=== PATIENT | male | born 1960 | race Caucasian/White ===

== ENCOUNTER → 2018-04-07 | Outpatient (CLI) | payer SELFPAY ==
[2018-04-07 12:37] LABS: Basophils # (A) 0.1 k/uL (0-0.2); Basophils % (A) 1 %; Eosinophils # (A) 0.1 k/uL (0-0.7); Eosinophils % (A) 1 %; HCT 49.1 % (39.0-53.0); HGB 16.3 gm/dL (13.0-17.5); Lymphocytes % (A) 33 %; MCHC 33.1 g/dL (31.0-37.0); MCV 90.7 fL (80.0-100.0); Mean Platelet Volume 7.3; Monocytes # (A) 0.4 k/uL (0-1.0); Monocytes % (A) 7 %; Neutrophils # (A) 3.4 k/uL (1.3-7.7); Neutrophils % (A) 56 %; Platelet Count 191 k/uL (150-450); RBC 5.41 m/uL (4.30-5.90); RDW 12.4 % (11.5-15.5); WBC 6.1 k/uL (3.8-10.6)
[2018-04-07 13:07] LABS: ALT 77 U/L (21-72); AST 69 U/L (17-59); Albumin 4.4 g/dL (3.5-5.0); Alkaline Phosphatase 70 U/L (38-126); Anion Gap 9 mmol/L; Blood Urea Nitrogen 20 mg/dL (9-20); Calcium 9.4 mg/dL (8.4-10.2); Carbon Dioxide 29 mmol/L (22-30); Chloride 101 mmol/L (98-107); Cholesterol 207 mg/dL (<200); Glucose 103 mg/dL (74-99); HDL Cholesterol 54 mg/dL (40-60); LDL Cholesterol,Calculated 143 mg/dL (0-99); Potassium 4.7 mmol/L (3.5-5.1); Sodium 139 mmol/L (137-145); Total Bilirubin 0.8 mg/dL (0.2-1.3); Total Protein 7.7 g/dL (6.3-8.2); Triglycerides 49 mg/dL (<150)
[2018-04-07 13:22] LABS: Prostate Specific Antigen 1.14 ng/mL (0.00-4.00)
[2018-04-07 19:43] LABS: Hemoglobin A1C 5.5 % (4.0-6.0)
== END | disposition home or self-care (01) ==
LOC: LABWHC1 12:08
PROVIDERS: ATTEND Family Medicine
DX: I10 Essential (primary) hypertension (principal)
CPT/HCPCS: 36415; 80053; 80061; 83036; 84153; 84443; 85025

== ENCOUNTER 2018-09-24 01:50 | Emergency (ER) | payer OTHER ==
[2018-09-24 01:57] VITALS: TEMP 98.6
--- NOTE | 2018-09-24 02:47 | CT ---
ADDENDUM - Added by Sandoval Ashby MD on 09/24/2018 2:47 AM (-08:00) 45 ctdi [id number] dlp EXAM: CT Maxillofacial Without Intravenous Contrast CLINICAL HISTORY: ITS.REASON CT Reason: Pain TECHNIQUE: Axial computed tomography images of the face without intravenous contrast. This CT exam was performed using one or more of the following dose reduction techniques: automated exposure control, adjustment of the mA and/or kV according to patient size, and/or use of iterative reconstruction technique. COMPARISON: No relevant prior studies available. FINDINGS: Bones/joints: Age-indeterminate depressed left orbital floor fracture. Bilateral nasal bone fractures including a depressed fracture on the right. Soft tissues: Perinasal and periorbital soft tissue swelling. Orbits: Unremarkable. Sinuses: No air-fluid levels. IMPRESSION: Age-indeterminate depressed left orbital floor fracture. Bilateral nasal bone fractures including a depressed fracture on the right.
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
[2018-09-24] MEDS ORDERED: LIDOCAINE 1% INJ 10MG/ML (20 ML MDV) SQ ONE (02:56)
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
[2018-09-24 09:06] VITALS: BP 131/85; PULSE 75; RESP 18
== END 2018-09-24 09:06 | disposition home or self-care (01) ==
LOC: EC 01:50
DX: S02.2XXA Fracture of nasal bones, initial encounter for closed fracture (principal); S02.32XA Fracture of orbital floor, left side, initial encounter for closed fracture; S01.111A Laceration without foreign body of right eyelid and periocular area, initial encounter; F10.129 Alcohol abuse with intoxication, unspecified; Y04.0XXA Assault by unarmed brawl or fight, initial encounter; Y92.89 Other specified places as the place of occurrence of the external cause
CPT/HCPCS: 70486; 70450; 99284; 12011; J2001

== ENCOUNTER → 2018-10-27 | Outpatient (CLI) | payer SELFPAY ==
[2018-10-27 11:34] LABS: Basophils # (A) 0.1 k/uL (0-0.2); Basophils % (A) 1 %; Eosinophils # (A) 0.1 k/uL (0-0.7); Eosinophils % (A) 2 %; HGB 15.3 gm/dL (13.0-17.5); Lymphocytes # (A) 1.8 k/uL (1.0-4.8); Lymphocytes % (A) 35 %; MCH 28.7 pg (25.0-35.0); MCV 89.9 fL (80.0-100.0); Mean Platelet Volume 7.5; Monocytes # (A) 0.3 k/uL (0-1.0); Monocytes % (A) 7 %; Neutrophils # (A) 2.7 k/uL (1.3-7.7); Neutrophils % (A) 53 %; Platelet Count 165 k/uL (150-450); RBC 5.34 m/uL (4.30-5.90); RDW 12.9 % (11.5-15.5)
[2018-10-27 16:21] LABS: Albumin 4.5 g/dL (3.80-4.90); Albumin/Globulin Ratio 1.88 (1.60-3.17); Calcium 9.2 mg/dL (8.7-10.3); Globulin 2.4 g/dL (1.6-3.3); Potassium 4.4 mmol/L (3.5-5.5); Total Bilirubin 0.8 mg/dL (0.2-1.2); Total Protein 6.9 g/dL (6.2-8.2)
[2018-10-27 16:23] LABS: Folate, Serum 15.8 ng/mL
[2018-10-27 16:27] LABS: T4, Free (Free Thyroxine) 1.1 ng/dL (0.80-1.80)
[2018-10-27 20:04] LABS: Hemoglobin A1C 5.8 % (4.0-6.0)
== END | disposition home or self-care (01) ==
LOC: LABWHC1 10:34
PROVIDERS: ATTEND Family Medicine
DX: I10 Essential (primary) hypertension (principal)
CPT/HCPCS: 36415; 80053; 82306; 82607; 82746; 83036; 84439; 84443; 85025

== ENCOUNTER 2018-11-11 08:46 | Observation (INO) | payer OTHER ==
[2018-11-11] MEDS ORDERED: NITROGLYCERIN OINT 1 INCH/GM PACKET TOPICAL STA (09:00)
[2018-11-11] MEDS ORDERED: ASPIRIN 81 MG PO STA (09:00)
--- NOTE | 2018-11-11 09:02 | ED ---
General Adult HPI - General Chief complaint: Chest Pain Stated complaint: Chest pain Time Seen by Provider: 11/11/18 08:50 Source: patient, RN notes reviewed Mode of arrival: wheelchair Limitations: no limitations - History of Present Illness Initial comments: This is a 58-year-old male who presents emergency Department complaining of chest pain. Patient states it started about 4-5 days ago. He states it's intermittent in nature it seems to come in last couple hours when it comes. Patient states that the pain is associated with shortness of breath and this morning it was associated with diaphoresis. Patient states she's also noticed lately anytime he seems to observe himself he has shortness of breath which she normally does not. Patient denies any nausea only but states occasionally with chest pain he does get some nausea. Patient denies any abdominal pain. Patient states he does have high cholesterol and high blood pressure and also strong family history of heart disease. Patient denies any smoking diabetes. Patient denies any recent fever chills or cough. Patient denies headache patient denies numbness weakness. Patient denies any lightheadedness dizziness or near syncopal episode. Patient denies any swelling to the legs or calf tenderness. - Related Data Home Medications Medication Instructions Recorded Confirmed Atorvastatin [Lipitor] 20 mg PO DAILY 11/11/18 11/11/18 Cholecalciferol [Vitamin D3] 1,000 unit PO DAILY 11/11/18 11/11/18 DULoxetine HCL [Cymbalta] 60 mg PO DAILY 11/11/18 11/11/18 Hydrochlorothiazide [Hydrodiuril] 25 mg PO DAILY 11/11/18 11/11/18 Lisinopril 40 mg PO DAILY 11/11/18 11/11/18 Omeprazole 20 mg PO DAILY 11/11/18 11/11/18 Allergies Allergy/AdvReac Type Severity Reaction Status Date / Time No Known Allergies Allergy Verified 11/11/18 09:13 Review of Systems ROS Statement: Those systems with pertinent positive or pertinent negative responses have been documented in the HPI. ROS Other: All systems not noted in ROS Statement are negative. Past Medical History Past Medical History: GERD/Reflux, Hyperlipidemia, Hypertension History of Any Multi-Drug Resistant Organisms: None Reported Additional Past Surgical History / Comment(s): Hernia 40 yrs ago per patient Past Psychological History: No Psychological Hx Reported Smoking Status: Never smoker Past Alcohol Use History: Occasional Past Drug Use History: None Reported General Exam - General Exam Comments Initial Comments: GENERAL: Patient is well-developed and well-nourished. Patient is nontoxic and well- hydrated and is in mild distress. ENT: Neck is soft and supple. No significant lymphadenopathy is noted. Oropharynx is clear. Moist mucous membranes. Neck has full range of motion without eliciting any pain. EYES: The sclera were anicteric and conjunctiva were pink and moist. Extraocular movements were intact and pupils were equal round and reactive to light. Eyelids were unremarkable. PULMONARY: Unlabored respirations. Good breath sounds bilaterally. No audible rales rhonchi or wheezing was noted. CARDIOVASCULAR: There is a regular rate and rhythm without any murmurs gallops or rubs. ABDOMEN: Soft and nontender with normal bowel sounds. No palpable organomegaly was noted. There is no palpable pulsatile mass. SKIN: Skin is clear with no lesions or rashes and otherwise unremarkable. NEUROLOGIC: Patient is alert and oriented x3. Cranial nerves II through XII are grossly intact. Motor and sensory are also intact. Normal speech, volume and content. Symmetrical smile. MUSCULOSKELETAL: Normal extremities with adequate strength and full range of motion. No lower extremity swelling or edema. No calf tenderness. LYMPHATICS: No significant lymphadenopathy is noted PSYCHIATRIC: Normal psychiatric evaluation. Limitations: no limitations Course Vital Signs 11/11/18 11/11/18 11/11/18 08:47 09:17 09:22 Temperature 98.3 F Pulse Rate 70 59 L 81 Respiratory 18 18 18 Rate Blood Pressure 179/111 159/108 141/95 O2 Sat by Pulse 99 97 96 Oximetry 11/11/18 09:56 Temperature Pulse Rate 75 Respiratory 18 Rate Blood Pressure 140/78 O2 Sat by Pulse 98 Oximetry Medical Decision Making - Medical Decision Making EKG shows a normal sinus rhythm at 70 bpm UT interval 270 QRS is 84 Q-T intervals 42 QTC is 434. Patient's EKG shows no ST segment elevation or depression or T wave abnormalities are noted. Chest x-ray shows no acute abnormality. Patient received heparin Nitropaste and a nitroglycerin sublingual as well as aspirin emergency department. I spoke with the patient [place] hospitalist agreed to accept the patient admitted the patient wrote admitting orders I consult cardiology. I continued heparin Nitropaste and aspirin on the floor. - Lab Data Result diagrams: 11/11/18 09:08 11/11/18 09:08 Lab Results 11/11/18 11/11/18 11/11/18 Range/Units 09:08 09:08 09:08 WBC 5.1 (3.8-10.6) k/uL RBC 5.18 (4.30-5.90) m/uL Hgb 15.3 (13.0-17.5) gm/dL Hct 44.5 (39.0-53.0) % MCV 86.0 (80.0-100.0) fL MCH 29.6 (25.0-35.0) pg MCHC 34.4 (31.0-37.0) g/dL RDW 13.2 (11.5-15.5) % Plt Count 192 (150-450) k/uL Neutrophils % 52 % Lymphocytes % 34 % Monocytes % 8 % Eosinophils % 3 % Basophils % 1 % Neutrophils # 2.6 (1.3-7.7) k/uL Lymphocytes # 1.7 (1.0-4.8) k/uL Monocytes # 0.4 (0-1.0) k/uL Eosinophils # 0.2 (0-0.7) k/uL Basophils # 0.1 (0-0.2) k/uL PT 10.6 (9.0-12.0) sec INR 1.0 (<1.2) APTT 23.0 (22.0-30.0) sec Sodium 137 (137-145) mmol/L Potassium 4.3 (3.5-5.1) mmol/L Chloride 99 (98-107) mmol/L Carbon Dioxide 29 (22-30) mmol/L Anion Gap 9 mmol/L BUN 20 (9-20) mg/dL Creatinine 0.86 (0.66-1.25) mg/dL Est GFR (CKD-EPI)AfAm >90 (>60 ml/min/1.73 sqM) Est GFR (CKD-EPI)NonAf >90 (>60 ml/min/1.73 sqM) Glucose 114 H (74-99) mg/dL Calcium 9.9 (8.4-10.2) mg/dL Magnesium 1.7 (1.6-2.3) mg/dL Total Bilirubin 0.5 (0.2-1.3) mg/dL AST 38 (17-59) U/L ALT 55 (21-72) U/L Alkaline Phosphatase 90 (38-126) U/L Troponin I (0.000-0.034) ng/mL NT-Pro-B Natriuret Pep pg/mL Total Protein 7.6 (6.3-8.2) g/dL Albumin 4.3 (3.5-5.0) g/dL 11/11/18 11/11/18 Range/Units 09:08 09:08 WBC (3.8-10.6) k/uL RBC (4.30-5.90) m/uL Hgb (13.0-17.5) gm/dL Hct (39.0-53.0) % MCV (80.0-100.0) fL MCH (25.0-35.0) pg MCHC (31.0-37.0) g/dL RDW (11.5-15.5) % Plt Count (150-450) k/uL Neutrophils % % Lymphocytes % % Monocytes % % Eosinophils % % Basophils % % Neutrophils # (1.3-7.7) k/uL Lymphocytes # (1.0-4.8) k/uL Monocytes # (0-1.0) k/uL Eosinophils # (0-0.7) k/uL Basophils # (0-0.2) k/uL PT (9.0-12.0) sec INR (<1.2) APTT (22.0-30.0) sec Sodium (137-145) mmol/L Potassium (3.5-5.1) mmol/L Chloride (98-107) mmol/L Carbon Dioxide (22-30) mmol/L Anion Gap mmol/L BUN (9-20) mg/dL Creatinine (0.66-1.25) mg/dL Est GFR (CKD-EPI)AfAm (>60 ml/min/1.73 sqM) Est GFR (CKD-EPI)NonAf (>60 ml/min/1.73 sqM) Glucose (74-99) mg/dL Calcium (8.4-10.2) mg/dL Magnesium (1.6-2.3) mg/dL Total Bilirubin (0.2-1.3) mg/dL AST (17-59) U/L ALT (21-72) U/L Alkaline Phosphatase (38-126) U/L Troponin I <0.012 (0.000-0.034) ng/mL NT-Pro-B Natriuret Pep 16 pg/mL Total Protein (6.3-8.2) g/dL Albumin (3.5-5.0) g/dL Critical Care Time Critical Care Time: Yes Total Critical Care Time: 35 Disposition Clinical Impression: Unstable angina pectoris, Hypertensive urgency Disposition: ADMITTED IP TO THIS HOSP Referrals: None,Stated [Primary Care Provider] - 1-2 days Time of Disposition: 10:41
[2018-11-11] MEDS ORDERED: NITROGLYCERIN SL TABS 0.4 MG TAB SUBLINGUAL STA (09:04)
[2018-11-11 09:30] LABS: Basophils # (A) 0.1 k/uL (0-0.2); Basophils % (A) 1 %; Eosinophils # (A) 0.2 k/uL (0-0.7); Eosinophils % (A) 3 %; HCT 44.5 % (39.0-53.0); HGB 15.3 gm/dL (13.0-17.5); Lymphocytes # (A) 1.7 k/uL (1.0-4.8); Lymphocytes % (A) 34 %; MCH 29.6 pg (25.0-35.0); MCHC 34.4 g/dL (31.0-37.0); Mean Platelet Volume 7.8; Monocytes # (A) 0.4 k/uL (0-1.0); Monocytes % (A) 8 %; Neutrophils # (A) 2.6 k/uL (1.3-7.7); Neutrophils % (A) 52 %; Platelet Count 192 k/uL (150-450); RBC 5.18 m/uL (4.30-5.90); RDW 13.2 % (11.5-15.5); WBC 5.1 k/uL (3.8-10.6)
[2018-11-11 09:38] LABS: ALT 55 U/L (21-72); AST 38 U/L (17-59); Albumin 4.3 g/dL (3.5-5.0); Alkaline Phosphatase 90 U/L (38-126); Anion Gap 9 mmol/L; Blood Urea Nitrogen 20 mg/dL (9-20); Calcium 9.9 mg/dL (8.4-10.2); Carbon Dioxide 29 mmol/L (22-30); Chloride 99 mmol/L (98-107); Glucose 114 mg/dL (74-99); Magnesium 1.7 mg/dL (1.6-2.3); Potassium 4.3 mmol/L (3.5-5.1); Sodium 137 mmol/L (137-145); Total Bilirubin 0.5 mg/dL (0.2-1.3); Total Protein 7.6 g/dL (6.3-8.2)
[2018-11-11 09:46] LABS: Prothrombin Time 10.6 sec (9.0-12.0)
--- NOTE | 2018-11-11 09:48 | XR ---
EXAMINATION TYPE: XR chest 2V DATE OF EXAM: 11/11/2018 HISTORY: Chest Pain. REFERENCE: NONE. FINDINGS: The lungs are clear. Pleural space are clear. The heart is not enlarged. Lung volumes are m ildly prominent. IMPRESSION: PLEASE CORRELATE FOR COPD.
[2018-11-11] MEDS ORDERED: HEPARIN SODIUM,PORCINE 5,000 UNIT/ML 1 ML VIAL IV ONE (10:38)
[2018-11-11] MEDS ORDERED: HEPARIN SOD,PORK IN 0.45% NACL 25,000 UNIT in 0.45% NACL 1 250ML.BAG IV SCH (10:45)
[2018-11-11] MEDS ORDERED: NITROGLYCERIN SL TABS 0.4 MG TAB SUBLINGUAL PRN (10:56)
[2018-11-11] MEDS ORDERED: ONDANSETRON 4 MG/2 ML VIAL IVP PRN (15:40)
[2018-11-11] MEDS: HYDROcodone/APAP 5-325MG 1 EACH TAB PO PRN ×2 (16:23→23:57)
[2018-11-11] MEDS ORDERED: HEPARIN SODIUM,PORCINE 5,000 UNIT/ML 1 ML VIAL IV STA (17:53)
[2018-11-11] MEDS ORDERED: TEMAZEPAM 15 MG CAP PO PRN (19:00)
[2018-11-11] MEDS ORDERED: LORazepam 0.5 MG TAB PO PRN (19:00)
[2018-11-11] MEDS ORDERED: HYDROmorphone 0.5 MG/0.5 ML SYRINGE IVP PRN (19:01)
[2018-11-11] MEDS: NITROGLYCERIN OINT 1 INCH/GM PACKET TOPICAL SCH (21:21)
--- NOTE | 2018-11-11 22:44 | HP ---
HISTORY AND PHYSICAL DATE OF SERVICE: 11/11/2018 CHIEF COMPLAINT: Chest pain. HISTORY OF PRESENT ILLNESS: This 58-year-old gentleman with a past medical history of multiple medical problems including GERD, hyperlipidemia, was complaining of chest pain which started about 4-5 days ago, intermittent in character, which was associated with shortness of breath and mostly on the left side and anterior part of the chest. Patient came to [facility] and admitted to the hospital further recommendations to follow. There is no history of fever, rigors or chills. No history of headache, loss of consciousness, seizures. PAST MEDICAL HISTORY: 1. History GERD. 2. History of hyperlipidemia. 3. History of hernia. MEDICATIONS: Prior to admission include: 1. Omeprazole 20 mg p.o. daily. 2. Lisinopril 40 mg daily. 3. HydroDIURIL 25 mg daily. 4. Cymbalta 60 mg daily. 5. Vitamin D 3000 daily. 6. Lipitor 20 mg daily. ALLERGIES: None. FAMILY HISTORY: No history of heart disease or strokes in the family. SOCIAL HISTORY: History of alcohol, 2-3 drinks and no history of smoking. REVIEW OF SYSTEMS: ENT: No diminished hearing or vision. CARDIOVASCULAR: No angina or palpitations. RESPIRATORY: As mentioned earlier. CARDIOVASCULAR: As mentioned earlier. Respiration: No cough. No hemoptysis. GI no nausea or vomiting. : No dysuria or hematuria. NERVOUS SYSTEM: No numbness or weakness. ALLERGY/IMMUNOLOGY: No asthma or hayfever. HEMATOLOGY/ONCOLOGY: As mentioned earlier. ENDOCRINE: No history of diabetes or hypothyroidism. MUSCULOSKELETAL: As mentioned earlier. CONSTITUTIONAL: As mentioned earlier. Dermatology: Negative. Rheumatology: Negative. Psychiatry: As mentioned earlier. PHYSICAL EXAM: Patient is alert, oriented x3. The pulse is 83, blood pressure 133/85, respiration 18, temperature 97.2, pulse ox 94% on room air. HEENT: Conjunctivae normal. NECK: No jugular venous distention. CARDIOVASCULAR: S1, S2 muffled. RESPIRATORY: Breath sounds diminished at the bases. No rhonchi. No crackles. ABDOMEN: Soft, nontender. No mass palpable. Legs: No edema. No swelling. CENTRAL NERVOUS SYSTEM: Higher functions as mentioned earlier. Moves all four extremities. No focal deficits. Lymphatics: No lymph nodes palpable in the neck, axillae or groin. Skin: No ulcer, no rash. No bleeding. JOINTS: No active deforming arthropathy. LABS: CBC within normal limits. CMP glucose 114. Troponins are noted. EKG normal. ASSESSMENT: 1. Chest pain, possible unstable angina. 2. History of hypertension. 3. Hyperlipidemia. 4. History of gastroesophageal reflux disease. 5. History of hernia surgery. 6. History of ETOH. 7. Obesity with body mass of 34.1. RECOMMENDATIONS: In this 58-year-old gentleman who presented with multiple complex medical issues, we will monitor the patient closely. Continue the current medications, management and symptomatic treatment. Cardiology consultation. Rule out myocardial infarction. Unstable angina protocol. Resume the home medications. Monitor closely. CIWA protocol in case the patient has any withdrawal symptoms. Otherwise, we will continue to monitor. Guarded prognosis. Further recommendations to follow. Discussed with the patient who understands and agrees. MMODL / IJN: [id number] /
[2018-11-12] MEDS: NITROGLYCERIN OINT 1 INCH/GM PACKET TOPICAL SCH ×3 (03:03→12:04)
[2018-11-12] MEDS ORDERED: PANTOPRAZOLE 40 MG TABLET PO SCH (07:30)
[2018-11-12 08:50] LABS: Basophils % (A) 1 %; Eosinophils # (A) 0.2 k/uL (0-0.7); Eosinophils % (A) 3 %; HCT 41.8 % (39.0-53.0); HGB 14.1 gm/dL (13.0-17.5); Lymphocytes # (A) 2.4 k/uL (1.0-4.8); Lymphocytes % (A) 40 %; MCH 28.6 pg (25.0-35.0); MCHC 33.6 g/dL (31.0-37.0); MCV 85.2 fL (80.0-100.0); Mean Platelet Volume 9.7; Monocytes # (A) 0.4 k/uL (0-1.0); Monocytes % (A) 7 %; Neutrophils % (A) 49 %; Platelet Count 172 k/uL (150-450); RBC 4.91 m/uL (4.30-5.90); RDW 15.4 % (11.5-15.5); WBC 6.1 k/uL (3.8-10.6)
[2018-11-12 08:57] LABS: Anion Gap 6 mmol/L; Blood Urea Nitrogen 19 mg/dL (9-20); Calcium 9.2 mg/dL (8.4-10.2); Carbon Dioxide 31 mmol/L (22-30); Chloride 102 mmol/L (98-107); Cholesterol 141 mg/dL (<200); Glucose 102 mg/dL (74-99); HDL Cholesterol 49 mg/dL (40-60); LDL Cholesterol,Calculated 71 mg/dL (0-99); Potassium 4.3 mmol/L (3.5-5.1); Sodium 139 mmol/L (137-145); Triglycerides 107 mg/dL (<150)
[2018-11-12] MEDS ORDERED: NON-FORMULARY DRUG (Omeprazole [Omeprazole] 20 MG) PO SCH (09:00)
[2018-11-12] MEDS ORDERED: ATORVASTATIN 20 MG TAB PO SCH (09:00)
[2018-11-12] MEDS ORDERED: ASPIRIN 325 MG TAB PO SCH (09:00)
[2018-11-12] MEDS ORDERED: DULoxetine HCL 60 MG CAPSULE.DR PO SCH (09:00)
[2018-11-12] MEDS ORDERED: LISINOPRIL 20 MG TAB PO SCH (09:00)
[2018-11-12] MEDS ORDERED: HYDROCHLOROTHIAZIDE 25 MG TAB PO SCH (09:00)
--- NOTE | 2018-11-12 09:26 | P.CRDCN ---
History of Present Illness Consult date: 11/12/18 Consult reason: chest pain History of present illness: Patient is a 58-year-old male with past medical history of hypertension, hyperlipidemia, and EtOH abuse, who presented to the hospital with new onset of abdominal and chest discomfort. He states this started several days back, however the check discomfort would intermittently resolve. He decided to come to the hospital when he had an episode with associated diaphoresis. Upon ar rival he was noted to be hypertensive. Two EKG's show sinus mechanism without acute ST or T-wave changes. Troponins were negative 3. BNP negative. The patient states he has not a smoker, however does drink on a regular basis. 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 On exam he is currently lying comfortably in the emergency room. He denies any palpitations, dyspnea, dizziness, or vertigo. PAST MEDICAL HISTORY: GERD, dyslipidemia, alcohol abuse, hypertension, obesity, hernia surgery REVIEW OF SYSTEMS: No fever or chills. No cough or expectoration. No diaphor esis. Patient denies headache, dizziness, blurred vision, double vision. Patient denies any stomach discomfort. No nausea, vomiting. No hematochezia. No hematemesis. Denies any black stools or blood in his stools. Denies dysuria or hematuria. No muscle weakness or numbness. PHYSICAL EXAMINATION: This is a 58-year-old L in no apparent distress at the time of my examination. HEENT: Head is atraumatic, normocephalic. Pupils are equal, round. Sclerae anicteric. Conjunctivae are clear. Mucous membranes of the mouth are moist. Neck is supple. There is no jugular venous distention. No carotid bruit is heard. CHEST EXAMINATION: Lungs are clear to auscultation. No chest wall tenderness is noted on palpation or with deep breathing. HEART EXAMINATION: Heart regular rate and rhythm. S1, S2 heard. No murmurs, gallops or rub. ABDOMEN: Soft, nontender. Bowel sounds are heard. No organomegaly noted. EXTREMITIES: 2+ peripheral pulses with no evidence of peripheral edema and no calf tenderness noted. NEUROLOGIC EXAMINATION: Patient is awake, alert and oriented x3. LABORATORY DATA: WBC 6.1, hemoglobin 14.1, and sodium 139, potassium 4.3, BUN 19, creatinine 0.87, magnesium 1.7, troponins negative 3, BNP 16, LDL 71, triglycerides 141. FINAL ASSESSMENT AND PLAN: Chest discomfort, likely secondary to pancreatitis Hypertension, uncontrolled Pancreatitis secondary to ETOH abuse Dyslipidemia, on statin PLAN: We will reduce aspirin to 81 mg and continue atorvastatin 40 mg. Discontinue heparin drip. Continue lisinopril 40 mg and hydrochlorothiazide 25mg daily. Consider adding amlodipine 5 mg daily. Patient will follow-up in office for outpatient stress testing. Thank you kindly for this consultation. Past Medical History Past Medical History: GERD/Reflux, Hyperlipidemia, Hypertension History of Any Multi-Drug Resistant Organisms: None Reported Additional Past Surgical History / Comment(s): Hernia 40 yrs ago per patient Past Psychological History: No Psychological Hx Reported Smoking Status: Never smoker Past Alcohol Use History: Occasional Past Drug Use History: None Reported - Past Family History Mother Family Medical History: Cancer Additional Family Medical History / Comment(s): colon ca Medications and Allergies Home Medications Medication Instructions Recorded Confirmed Type Atorvastatin [Lipitor] 20 mg PO DAILY 11/11/18 11/11/18 History Cholecalciferol [Vitamin D3] 1,000 unit PO DAILY 11/11/18 11/11/18 History DULoxetine HCL [Cymbalta] 60 mg PO DAILY 11/11/18 11/11/18 History Hydrochlorothiazide [Hydrodiuril] 25 mg PO DAILY 11/11/18 11/11/18 History Lisinopril 40 mg PO DAILY 11/11/18 11/11/18 History Omeprazole 20 mg PO DAILY 11/11/18 11/11/18 History Allergies Allergy/AdvReac Type Severity Reaction Status Date / Time No Known Allergies Allergy Verified 11/11/18 09:13 Physical Exam Vitals: Vital Signs Temp Pulse Pulse Resp BP BP Pulse Ox 11/12/18 09:02 98.6 F 65 18 145/100 97 11/12/18 08:52 97.7 F 64 16 153/97 94 L 11/12/18 06:48 97.9 F 71 15 146/96 94 L 11/12/18 03:03 97.9 F 76 15 156/102 97 11/12/18 01:28 64 16 11/11/18 23:49 98.3 F 61 15 144/97 95 11/11/18 20:38 98.3 F 73 16 133/89 95 11/11/18 17:26 97.9 F 83 18 134/85 95 11/11/18 14:37 76 18 133/85 96 11/11/18 11:17 67 18 141/90 99 11/11/18 09:56 75 18 140/78 98 11/11/18 09:22 81 18 141/95 96 11/11/18 09:17 59 L 18 159/108 97 Intake and Output 11/11/18 11/12/18 11/12/18 22:59 06:59 14:59 Intake Total 66.167 Balance 66.167 Intake: Intake, IV Titration 66.167 Amount Heparin Sod,Pork in 0.45% 66.167 NaCl 25,000 unit In 0.45 % NaCl 1 250ml.bag @ 9. 842 UNITS/KG/HR 10 mls/hr IV .Q24H [facility] Rx#: [id number] Results 11/12/18 07:51 11/12/18 07:51 Cardiac Enzymes 11/11/18 11/11/18 11/11/18 Range/Units 09:08 09:08 14:27 AST 38 (17-59) U/L Troponin I <0.012 <0.012 (0.000-0.034) ng/mL 11/11/18 Range/Units 23:32 AST (17-59) U/L Troponin I <0.012 (0.000-0.034) ng/mL Coagulation 11/11/18 11/11/18 11/11/18 Range/Units 09:08 17:35 23:32 PT 10.6 (9.0-12.0) sec APTT 23.0 35.3 H 64.1 H (22.0-30.0) sec Lipids 11/12/18 Range/Units 07:51 Triglycerides 107 (<150) mg/dL Cholesterol 141 (<200) mg/dL HDL Cholesterol 49 (40-60) mg/dL CBC 11/11/18 11/12/18 Range/Units 09:08 07:51 WBC 5.1 6.1 (3.8-10.6) k/uL RBC 5.18 4.91 (4.30-5.90) m/uL Hgb 15.3 14.1 (13.0-17.5) gm/dL Hct 44.5 41.8 (39.0-53.0) % Plt Count 192 172 (150-450) k/uL Comprehensive Metabolic Panel 11/11/18 11/12/18 Range/Units 09:08 07:51 Sodium 137 139 (137-145) mmol/L Potassium 4.3 4.3 (3.5-5.1) mmol/L Chloride 99 102 (98-107) mmol/L Carbon Dioxide 29 31 H (22-30) mmol/L BUN 20 19 (9-20) mg/dL Creatinine 0.86 0.87 (0.66-1.25) mg/dL Glucose 114 H 102 H (74-99) mg/dL Calcium 9.9 9.2 (8.4-10.2) mg/dL AST 38 (17-59) U/L ALT 55 (21-72) U/L Alkaline Phosphatase 90 (38-126) U/L Total Protein 7.6 (6.3-8.2) g/dL Albumin 4.3 (3.5-5.0) g/dL Current Medications Generic Name Dose Route Start Last Admin Trade Name Freq PRN Reason Stop Dose Admin Hydrocodone Bitart/Acetaminophen 1 each 11/11/18 15:39 11/11/18 23:57 [place] 5-325 PO 1 each Q6HR PRN Administration Pain Aspirin 325 mg 11/12/18 09:00 Aspirin PO DAILY [facility] Atorvastatin Calcium 20 mg 11/12/18 09:00 Lipitor PO DAILY [facility] Cholecalciferol 1,000 unit 11/12/18 12:00 Vitamin D3 PO 1200 [facility] Duloxetine HCl 60 mg 11/12/18 09:00 Cymbalta PO DAILY [facility] Hydrochlorothiazide 25 mg 11/12/18 09:00 Hydrodiuril PO DAILY [facility] Hydromorphone HCl 0.5 mg 11/11/18 19:01 Dilaudid IVP Q6HR PRN Severe Pain Heparin Sodium/Sodium Chloride 250 mls @ 10 mls/hr 11/11/18 10:45 11/11/18 17:51 25,000 unit/ Sodium Chloride IV 12.842 units/kg/hr .Q24H [facility] 13.048 mls/hr Titration Protocol 9.842 UNITS/KG/HR Lisinopril 40 mg 11/12/18 09:00 Zestril PO DAILY [facility] Lorazepam 0.5 mg 11/11/18 19:00 Ativan PO Q8HR PRN Anxiety Nitroglycerin 1 inch 11/11/18 18:00 11/12/18 07:14 Nitro-Bid Oint TOPICAL Not Given Q6HR [facility] Nitroglycerin 0.4 mg 11/11/18 10:56 Nitrostat SUBLINGUAL Q5M PRN Chest Pain Ondansetron HCl 4 mg 11/11/18 15:40 11/11/18 15:48 Zofran IVP 4 mg Q6HR PRN Administration Nausea And Vomiting Pantoprazole Sodium 40 mg 11/12/18 07:30 Protonix PO AC-BRKFST [facility] Temazepam 15 mg 11/11/18 19:00 Restoril PO HS PRN Insomnia Intake and Output 11/11/18 11/12/18 11/12/18 22:59 06:59 14:59 Intake Total 66.167 Balance 66.167 Intake: Intake, IV Titration 66.167 Amount Heparin Sod,Pork in 0.45% 66.167 NaCl 25,000 unit In 0.45 % NaCl 1 250ml.bag @ 9. 842 UNITS/KG/HR 10 mls/hr IV .Q24H [facility] Rx#: [id number] 11/12/18 07:51 11/12/18 07:51
[2018-11-12 09:39] VITALS: BMI 34.0
[2018-11-12] MEDS: HYDROcodone/APAP 5-325MG 1 EACH TAB PO PRN (10:01)
[2018-11-12] MEDS ORDERED: ASPIRIN 81 MG PO SCH (10:18)
[2018-11-12] MEDS ORDERED: CHOLECALCIFEROL 1,000 UNIT TAB PO SCH (12:00)
[2018-11-12 12:08] VITALS: BP 125/81; PULSE 68; RESP 16; TEMP 98.2
--- NOTE | 2018-11-12 21:54 | DS ---
DISCHARGE SUMMARY DATE OF SERVICE: 11/12/2018. FINAL DIAGNOSES: 1. Chest pain, myocardial infarction ruled out. Rule out coronary artery disease. 2. History of hypertension. 3. History of hyperlipidemia. 4. History of gastroesophageal reflux disease. 6. History of ETOH. 7. Obesity with body mass of 34.1. DISCHARGE DISPOSITION: The patient being discharged in stable condition with guarded. Cardiology cleared the patient for discharge too. HISTORY OF PRESENT ILLNESS: This 58 -year-old gentleman admitted with chest pain. Myocardial infarction ruled out. Cardiology saw the patient and recommend outpatient follow up. On exam, vital signs are stable. Cardiovascular: S1, S2. Abdomen soft. Central nervous system: No focal deficits. Follow up with Cardiology in 1 week. Follow with primary physician in 2-3 days. MEDICATIONS: Prior to admission: 1. Cymbalta 60 mg p.o. daily. 2. HydroDIURIL 25 mg. 3. Lipitor 20 mg. 4. Lisinopril 40 mg. 5. Omeprazole 20 mg daily. 6. Vitamin D 1000. 7. Aspirin 81 mg p.o. daily. Followup with the primary physician as recommended. MMODL / IJN: [id number] / GOSIA
[2018-11-13] MEDS ORDERED: ASPIRIN 81 MG PO SCH (09:00)
== END 2018-11-12 13:42 | disposition home or self-care (01) ==
LOC: EC 08:46 → 1SOBS 11:02
PROVIDERS: ADMIT Hospitalist; ATTEND Hospitalist
DX: R07.89 Other chest pain (principal); I16.0 Hypertensive urgency; I10 Essential (primary) hypertension; E78.00 Pure hypercholesterolemia, unspecified; K21.9 Gastro-esophageal reflux disease without esophagitis; R61 Generalized hyperhidrosis; E78.5 Hyperlipidemia, unspecified; E66.9 Obesity, unspecified; Z68.34 Body mass index [BMI] 34.0-34.9, adult; K86.0 Alcohol-induced chronic pancreatitis; F10.10 Alcohol abuse, uncomplicated; Z79.899 Other long term (current) drug therapy; Z86.59 Personal history of other mental and behavioral disorders; Z80.0 Family history of malignant neoplasm of digestive organs; Z82.49 Family history of ischemic heart disease and other diseases of the circulatory system
CPT/HCPCS: 93005 ×2; 96365; 96366 ×2; 96375; 96376; 99291; 36415; 83880; 80061; 80053; 80048; 83735; 84484; 85025 ×2; 85610; 85730; 71046; G0378 ×2; J1644 ×2; J2405

== ENCOUNTER → 2020-04-16 | Outpatient (CLI) | payer OTHER ==
[2020-04-16 11:08] LABS: Basophils # (A) 0.1 k/uL (0-0.2); Basophils % (A) 1 %; Eosinophils # (A) 0.1 k/uL (0-0.7); Eosinophils % (A) 1 %; HCT 45.3 % (39.0-53.0); HGB 14.7 gm/dL (13.0-17.5); Lymphocytes # (A) 1.5 k/uL (1.0-4.8); Lymphocytes % (A) 22 %; MCH 29.3 pg (25.0-35.0); MCHC 32.4 g/dL (31.0-37.0); MCV 90.4 fL (80.0-100.0); Mean Platelet Volume 7.7; Monocytes # (A) 0.4 k/uL (0-1.0); Monocytes % (A) 6 %; Neutrophils # (A) 4.7 k/uL (1.3-7.7); Neutrophils % (A) 68 %; Platelet Count 209 k/uL (150-450); RBC 5.01 m/uL (4.30-5.90); RDW 12.1 % (11.5-15.5); WBC 6.9 k/uL (3.8-10.6)
[2020-04-16 18:08] LABS: ALT 35 U/L (10-49); AST 29 U/L (14-35); African American GFR (CKD) 114.1 (60.0-200.0); Albumin/Globulin Ratio 1.88 (1.60-3.17); Alkaline Phosphatase 93 U/L (41-126); Calcium 9.8 mg/dL (8.7-10.3); Carbon Dioxide 26.1 mmol/L (21.6-31.8); Chloride 97 mmol/L (96-109); Chol/HDL Ratio 2.51; Cholesterol 123 mg/dL (0-200); Globulin 2.4 g/dL (1.6-3.3); Glucose 98 mg/dL (70-110); Non-African American GFR(CKD) 98.5 (60.0-200.0); Potassium 4.6 mmol/L (3.5-5.5); Sodium 133 mmol/L (135-145); Total Bilirubin 0.5 mg/dL (0.2-1.2); Total Protein 6.9 g/dL (6.2-8.2); Triglycerides <50.0 mg/dL (0.0-149.0)
[2020-04-16 18:35] LABS: Prostate Specific Antigen 0.5 ng/mL (0.0-3.5)
[2020-04-16 22:12] LABS: Hemoglobin A1C 5.5 % (4.0-6.0)
== END | disposition home or self-care (01) ==
LOC: LABWHC1 09:55
PROVIDERS: ATTEND Family Medicine
DX: F33.2 Major depressive disorder, recurrent severe without psychotic features (principal); F10.20 Alcohol dependence, uncomplicated; I10 Essential (primary) hypertension; Z79.899 Other long term (current) drug therapy
CPT/HCPCS: 36415; 80053; 80061; 82248; 83036; 84153; 84443; 85025

== ENCOUNTER → 2021-07-20 | Outpatient (CLI) | payer OTHER ==
[2021-07-20 14:51] LABS: Basophils # (A) 0.05 X 10*3/uL (0.00-0.10); Eosinophils # (A) 0.04 X 10*3/uL (0.04-0.35); Eosinophils % (A) 0.8 %; HCT 44.9 % (39.6-50.0); HGB 14.2 g/dL (13.0-17.0); Lymphocytes # (A) 1.53 X 10*3/uL (0.90-5.00); Lymphocytes % (A) 31.5 %; MCH 28.6 pg (27.0-32.0); MCHC 31.6 g/dL (32.0-37.0); MCV 90.5 fL (80.0-97.0); Mean Platelet Volume 10.7 fL (9.5-12.2); Monocytes # (A) 0.46 X 10*3/uL (0.20-1.00); Monocytes % (A) 9.5 %; Neutrophils # (A) 2.75 X 10*3/uL (1.80-7.70); Neutrophils % (A) 56.8 %; Platelet Count 205 X 10*3/uL (140-440); RBC 4.96 X 10*6/uL (4.40-5.60); RDW 12.1 % (11.5-14.5); WBC 4.85 X 10*3/uL (4.50-10.00)
[2021-07-20 16:07] LABS: African American GFR (CKD) 110.5 (60.0-200.0); Albumin 4.4 g/dL (3.8-4.9); Albumin/Globulin Ratio 1.89 (1.60-3.17); Anion Gap 11.9 mmol/L (10.00-18.00); BUN/Creat Ratio 19.51 Ratio (12.00-20.00); Blood Urea Nitrogen 16.6 mg/dL (9.0-27.0); Calcium 9.4 mg/dL (8.7-10.3); Carbon Dioxide 26.5 mmol/L (20.0-27.5); Globulin 2.4 g/dL (1.6-3.3); HDL Cholesterol 56.1 mg/dL (40.00-60.00); Non-African American GFR(CKD) 95.3 (60.0-200.0); Potassium 4.5 mmol/L (3.5-5.5); Total Bilirubin 0.4 mg/dL (0.30-1.20); Total Protein 6.8 g/dL (6.2-8.2); Triglycerides 41.4 mg/dL (0.00-149.00)
[2021-07-20 16:37] LABS: Chol/HDL Ratio 2.19 Ratio; LDL Cholesterol,Direct Reflex 57.4 mg/dL (0.00-129.00)
== END | disposition home or self-care (01) ==
LOC: LABWHC1 09:47
PROVIDERS: ATTEND Family Medicine
DX: I10 Essential (primary) hypertension (principal)
CPT/HCPCS: 36415; 80053; 80061; 83036; 83721; 84443; 85025

== ENCOUNTER → 2021-09-16 | Outpatient (CLI) | payer OTHER ==
--- NOTE | 2021-09-16 18:54 | CONS ---
CONSULTATION DATE OF SERVICE: 09/16/2021 This 60-year-old gentleman has been evaluated in Sleep Center for possible obstructive sleep apnea-hypopnea syndrome. HISTORY OF PRESENT ILLNESS/SLEEP-WAKE EVALUATION: Patient's usual sleep schedule is from 11 p.m. to 6:30 or 7 a.m. on weekdays and from midnight until 7:30 or 8 a.m. on weekends. Usually no problems with falling asleep. No TV in bedroom. He usually sleeps on the side position. He snores and wakes up from sleep several times; sometimes every hour, with one episode of nocturia. Positive history of dry mouth, heartburn, restless leg symptoms. No history of hypnagogic hallucinations, sleep paralysis or cataplexy. In the morning the patient wakes up tired, has problems with memory, concentration, irritability, depression, anxiety. [place] Sleepiness Scale is significantly increased at 14. The patient may have two rest periods during the day but does not always fall asleep during these rest periods. PAST MEDICAL HISTORY: Positive for hypertension, hyperlipidemia, acid reflux, depression, anxiety. PAST SURGICAL HISTORY: Hernia repair. MEDICATIONS: Aspirin, omeprazole, lisinopril, Trintellix, clonidine, atorvastatin, MiraLAX. SOCIAL HISTORY: Negative for smoking. Alcohol consumption rarely. FAMILY HISTORY: Hypertension, mental illness, snoring. REVIEW OF SYSTEMS: Multiple awakenings from sleep, sleepiness during the day. No fevers. No double vision. No recent chest pain. No shortness of breath. No abdominal pain. No bleeding episodes. No blood in the urine. No seizure episodes. PHYSICAL EXAM: GENERAL APPEARANCE: Pleasant gentleman without distress. VITAL SIGNS: BP 116/71, HR 58, RR 14, height 5 feet 7-3/4 inches, weight 188.2 pounds, body mass index 28.8, temperature 97.4, oxygen saturation at room air 96%. HEENT: PERRLA, EOMI, evaluation of oropharynx showed tongue protrudes midline. Extremely low position of soft palate; Mallampati IV. NECK: Supple, no JVD. Thyroid is not palpable. Neck measures 15-1/2 inches in circumference. LUNGS: Clear to percussion and to auscultation. Good air exchange. No wheezing or rhonchi. HEART: S1, S2 regular. No murmurs, gallops, or rubs. ABDOMEN: Soft and nontender. Bowel sounds are present. No organomegaly appreciated. EXTREMITIES: No clubbing or cyanosis. [employer]: Awake, alert, and oriented X3. Cranial nerves 2 to 7 intact. There is no fasciculation or atrophy. noted. No focal deficits observed. IMPRESSION: 1. Snoring, some nights multiple awakenings from sleep up to every hour, extremely low position of soft palate, Mallampati IV, sleepiness, [place] Sleepiness Scale of 14; obstructive sleep apnea-hypopnea syndrome. 2. Sleepiness with [place] Sleepiness Scale 14, dictating necessity to include hypersomnia and narcolepsy without cataplexy in differential diagnosis in case sleep study is negative for obstructive sleep apnea-hypopnea syndrome. 3. Restless leg symptoms. 4. Hypertension. 5. Hyperlipidemia. 6. History of depression and anxiety. 7. Status post hernia repair. PLAN: 1. Polysomnography for evaluation of patient's breathing during sleep. 2. CPAP/BiPAP titration if sleep study confirms obstructive sleep apnea-hypopnea syndrome. 3. Preferable position during sleep on the side. 4. No driving if patient feels any sleepiness. 5. I will see patient for follow up visit to explain results of testing and following plan. Thank you very much for referring this patient for consultation. Sincerely, Abdirashid Lemons MD, PhD, FAASM Diplomat of [employer] Sleep Medicine Board of [employer] Associate Professor Of Geography of [facility] [place] MMODL / ARMANDON: [id number] /
== END ==
LOC: SLEEP 14:24
PROVIDERS: ATTEND Internal Medicine
DX: G47.33 Obstructive sleep apnea (adult) (pediatric) (principal); G25.81 Restless legs syndrome; I10 Essential (primary) hypertension; E78.5 Hyperlipidemia, unspecified; F32.A Depression, unspecified; F41.9 Anxiety disorder, unspecified; Z98.890 Other specified postprocedural states; Z79.899 Other long term (current) drug therapy
CPT/HCPCS: 99211

== ENCOUNTER → 2022-02-24 | Outpatient (CLI) | payer OTHER ==
--- NOTE | 2022-02-24 15:43 | P.PN ---
Subjective DATE: [] FOLLOW UP VISIT. Patient with obstructive sleep apnea hypopnea syndrome return to sleep center for follow-up visit. Recently patient had sleep study which documented obstructive sleep apnea hypopnea syndrome. Patient was initiated on PAP therapy and today is first visit after treatment was started. Patient was able to use PAP equipment. The patient does not have significant problems with the mask, PAP pressure and humidification. [place] sleepiness scale is 11. I checked information from PAP unit. PAP unit pressure 5-16, average 8 cm H2O. Usage is 70 % for more then 4 hours, average 4 hours 14 minutes per night. Leak is 28.4 l/m, which is in acceptable range. Apnea Hypopnea Index is 2.1, which is normal. MEDICATIONS:1. Aspirin 2. Omeprazole 3. Lisinopril 4. Clonidine 5. Atorvastatin During physical exam: GENERAL: A pleasant patient without any distress. VITAL SIGNS: BP 122/82, HR 76, RR 16 , weight 189, temperature 98.3, oxygen saturation at room air 97% . HEENT: PERRLA, EOMI.low position of soft palate, Mallapati 4 . NECK: Supple. No JVD. LUNGS: Clear to percussion and to auscultation. Good air exchange. No wheezing or rhonchi. HEART: S1, S2 regular. ABDOMEN: Soft and nontender.[] EXTREMITIES: No clubbing or cyanosis. [employer]: Awake, alert, and oriented x3. No focal deficit. Impressions: 1. Obstructive sleep apnea-hypopnea syndrome. Patient demonstrated acceptable compliance with treatment, benefiting from treatment. 2. Hypertension. 3. Hyperlipidemia. 4. History of depression and anxiety. 5. Status post hernia repair. Plan: 1. Continue using PAP equipment every night for the whole night. 2. To change air filter at least 1-2 times per month. 3. PAP unit should stay lower then position of the head. 4. Advised patient to remove all remaining water from humidifier canister daily and make it dry after each usage. Refill canister with fresh distilled water before each usage. 5. Sleep hygiene with regular time in bed for at least 8 hours. 6. Precautions related to driving. No driving if feel any sleepiness. 7. I will maintain prescription for PAP supplies including mask, tube, filters. 8. Follow up visit in 6 months or earlier if patient has any problems. 9. Watching weight. Thank you very much for allowing me to participate in the management of your patient. Abdirashid Lemons MD, PhD, FAASM. Diplomat of [employer], Sleep Medicine Board by [employer] [facility] [place]
== END ==
LOC: SLEEP 14:57
PROVIDERS: ATTEND Internal Medicine
DX: G47.33 Obstructive sleep apnea (adult) (pediatric) (principal); I10 Essential (primary) hypertension; E78.5 Hyperlipidemia, unspecified; F41.9 Anxiety disorder, unspecified; F32.A Depression, unspecified; Z98.890 Other specified postprocedural states; Z99.89 Dependence on other enabling machines and devices

== ENCOUNTER → 2023-04-21 | Outpatient (CLI) | payer OTHER ==
[2023-04-21 15:12] LABS: ALT 32 U/L (10-49); AST 28 U/L (14-35); Albumin/Globulin Ratio 1.79 Ratio (1.60-3.17); Alkaline Phosphatase 86 U/L (41-126); BUN/Creat Ratio 20.44 Ratio (12.00-20.00); Blood Urea Nitrogen 18.4 mg/dL (9.0-27.0); Calcium 9.8 mg/dL (8.7-10.3); Carbon Dioxide 22.5 mmol/L (21.6-31.8); Chloride 102 mmol/L (96-109); Chol/HDL Ratio 3.29 Ratio; Globulin 2.8 d/dL (1.6-3.3); Glucose 105 mg/dL (70-110); LDL Cholesterol,Calculated 108.5 mg/dL (0.0-131.0); Magnesium 1.8 mg/dL (1.5-2.4); Potassium 4.8 mmol/L (3.5-5.5); Sodium 138 mmol/L (135-145); Total Bilirubin 0.4 mg/dL (0.3-1.2); Total Protein 7.8 d/dL (6.2-8.2)
[2023-04-21 16:01] LABS: Basophils # (A) 0.07 X 10*3/uL (0.00-0.10); Basophils % (A) 1.4 %; Eosinophils # (A) 0.08 X 10*3/uL (0.04-0.35); Eosinophils % (A) 1.6 %; HGB 15.4 d/dL (13.0-17.0); Lymphocytes # (A) 2.13 X 10*3/uL (0.90-5.00); Lymphocytes % (A) 41.9 %; MCHC 32.8 d/dL (32.0-37.0); MCV 88.5 FL (80.0-97.0); Mean Platelet Volume 11.1 FL (9.5-12.2); Monocytes # (A) 0.48 X 10*3/uL (0.20-1.00); Monocytes % (A) 9.4 %; NRBC Per 100 WBC 0 X 10*3/uL (0.00-0.01); Neutrophils # (A) 2.31 X 10*3/uL (1.80-7.70); Neutrophils % (A) 45.5 %; Platelet Count 196 X 10*3/uL (140-440); RBC 5.31 X 10*6/uL (4.40-5.60); RDW 12.4 % (11.5-14.5); WBC 5.08 X 10*3/uL (4.50-10.00)
== END | disposition home or self-care (01) ==
LOC: LABWHC1 10:33
PROVIDERS: ATTEND Family Medicine
DX: Z00.00 Encounter for general adult medical examination without abnormal findings (principal); Z12.5 Encounter for screening for malignant neoplasm of prostate; I10 Essential (primary) hypertension; E78.5 Hyperlipidemia, unspecified; R00.2 Palpitations
CPT/HCPCS: 36415; 80053; 80061; 83036; 83735; 84153; 84443; 85025